=== PATIENT | female | born 1935 | race Caucasian/White ===

== ENCOUNTER 2016-08-08 09:27 | Day surgery (SDC) | payer MEDICARE, OTHER ==
--- NOTE | ~2016-08-08 | EGD ---
EGD REPORT [place] [address] [place] [address] NAME: SILVIA ARGUETA : 39 STATUS : REG [facility] [place] PAT#: [id number] AGE: 81 ADM/REG DATE : 08/08/16 MR#: [id number] REPORT SERV DATE: 08/08/16 DICTATED BY: LEANNA RUIZ DATE: 08/08/16 REPORT STATUS : Draft TRANSCRIBED BY: [facility] DATE: 08/08/16 Endoscopy Center Patient Name: Silvia Argueta Date of : 1935 Attending MD: NORM RUIZ MD Procedure Date No Time: 08/08/2016 Procedure: Colonoscopy Indications: High risk colon cancer surveillance: Personal history of colonic polyps, Last colonoscopy: June 2010 Referring MD: KAIN GONZALEZ Medicines: See the Anesthesia note for documentation of the administered medications Complications: No immediate complications. Estimated blood loss: None. Procedure: Pre-Anesthesia Assessment: - ASA Grade Assessment: III - A patient with severe systemic disease. - Prior to the procedure, a History and Physical was performed, and patient medications and allergies were reviewed. The patient's tolerance of previous anesthesia was also reviewed. The risks and benefits of the procedure and the sedation options and risks were discussed with the patient. All questions were answered, and informed consent was obtained. Prior Anticoagulants: The patient has taken aspirin, last dose was 1 day prior to procedure. After reviewing the risks and benefits, the patient was deemed in satisfactory condition to undergo the procedure. After I obtained informed consent, the scope was passed under direct vision. Throughout the procedure, the patient's blood pressure, pulse, and oxygen saturations were monitored continuously. The PCF [id number] was introduced through the anus and advanced to the terminal ileum. The ileocecal valve, appendiceal orifice, terminal ileum and rectum were photographed. The entire colon was examined. The colonoscopy was performed without difficulty. The patient tolerated the procedure well. The quality of the bowel preparation was adequate. Findings: The perianal and digital rectal examinations were normal. The terminal ileum appeared normal. A sessile polyp was found in the sigmoid colon. The polyp was 3 mm in size. The polyp was removed with a cold snare. Resection was complete, but the polyp tissue was not retrieved. A sessile polyp was found in the distal ascending colon. The polyp was 4 EGD REPORT [address] [address] NAME: SILVIA ARGUETA : 39 STATUS : REG [facility]#: [id number] AGE: 81 ADM/REG DATE : 08/08/16 MR#: [id number] REPORT SERV DATE: 08/08/16 DICTATED BY: LEANNA RUIZ DATE: 08/08/16 REPORT STATUS : Draft TRANSCRIBED BY: [employer] DATE: 08/08/16 mm in size. The polyp was removed with a cold snare. Resection and retrieval were complete. Multiple small and large-mouthed diverticula were found in the entire colon. Non-bleeding internal hemorrhoids were found during retroflexion and were Grade I (internal hemorrhoids that do not prolapse). No other significant abnormalities were identified in a careful examination of the remainder of the colon. Impression: - The examined portion of the ileum was normal. - One 3 mm polyp in the sigmoid colon. Complete resection. Polyp tissue not retrieved. - One 4 mm polyp in the distal ascending colon. Resected and retrieved. - Diverticulosis in the entire examined colon. - Non-bleeding internal hemorrhoids. Recommendation: - Patient has a contact number available for emergencies. The signs and symptoms of potential delayed complications were discussed with the patient. Return to normal activities tomorrow. Written discharge instructions were provided to the patient. - High fiber diet indefinitely. - Discharge patient to home. - Continue present medications. - Await pathology results. - Repeat colonoscopy is not recommended for surveillance. Procedure Code(s): --- Professional --- 37947, Colonoscopy, flexible, proximal to splenic flexure; with removal of tumor(s), polyp(s), or other lesion(s) by snare technique Diagnosis Code(s): --- Professional --- K64.0, First degree hemorrhoids K57.30, Diverticulosis of large intestine without perforation or abscess without bleeding D12.2, Benign neoplasm of ascending colon D12.5, Benign neoplasm of sigmoid colon Z86.010, Personal history of colonic polyps CPT copyright 2013 [employer]. All rights reserved. The codes documented in this report are preliminary and upon aerial photographer review may be revised to meet current compliance requirements. EGD REPORT [place] [address] [address] NAME: SILVIA ARGUETA : 39 STATUS : REG [facility]#: [id number] AGE: 81 ADM/REG DATE : 08/08/16 MR#: [id number] REPORT SERV DATE: 08/08/16 DICTATED BY: LEANNA RUIZ DATE: 08/08/16 REPORT STATUS : Draft TRANSCRIBED BY: [employer] DATE: 08/08/16 NORM RUIZ MD 08/08/2016 10:35 AM This report has been signed electronically. Number of Addenda: 0 Note Initiated On: 08/08/2016 10:00 AM Scope Withdrawal Time 0 hours 6 minutes 25 seconds [address] [address]
--- NOTE | ~2016-08-08 | EGD ---
EGD REPORT [facility] [address] [place] [address] NAME: SILVIA ARGUETA : 39 STATUS : REG [facility] [place] PAT#: [id number] AGE: 81 ADM/REG DATE : 08/08/16 MR#: [id number] REPORT SERV DATE: 08/08/16 DICTATED BY: LEANNA RUIZ DATE: 08/08/16 REPORT STATUS : Draft [facility]ANSCRIBED BY: [facility] DATE: 08/08/16 Endoscopy Center Patient Name: Silvia Argueta Date of : 1935 Attending MD: NORM RUIZ MD Procedure Date No Time: 08/08/2016 Procedure: Upper GI endoscopy Indications: Dysphagia Referring MD: KAIN GONZALEZ Medicines: See the Anesthesia note for documentation of the administered medications Complications: No immediate complications. Estimated blood loss: None. Procedure: Pre-Anesthesia Assessment: - ASA Grade Assessment: III - A patient with severe systemic disease. - Prior to the procedure, a History and Physical was performed, and patient medications and allergies were reviewed. The patient's tolerance of previous anesthesia was also reviewed. The risks and benefits of the procedure and the sedation options and risks were discussed with the patient. All questions were answered, and informed consent was obtained. Prior Anticoagulants: The patient has taken aspirin, last dose was 1 day prior to procedure. After reviewing the risks and benefits, the patient was deemed in satisfactory condition to undergo the procedure. After obtaining informed consent, the endoscope was passed under direct vision. Throughout the procedure, the patient's blood pressure, pulse, and oxygen saturations were monitored continuously. The GIF H190 [id number] was introduced through the mouth, and advanced to the third part of duodenum. The upper GI endoscopy was accomplished without difficulty. The patient tolerated the procedure well. Findings: The examined duodenum was normal. A small hiatus hernia was present. No other significant abnormalities were identified in a careful examination of the stomach. Abnormal motility was noted in the esophagus. Tertiary peristaltic waves are noted. A guidewire was placed and the scope was withdrawn. Dilation was performed with a Savary dilator with no resistance at 51 Fr and no resistance at 57 Fr. EGD REPORT [address] [address] NAME: SILVIA ARGUETA : 39 STATUS : REG [facility]#: [id number] AGE: 81 ADM/REG DATE : 08/08/16 MR#: [id number] REPORT SERV DATE: 08/08/16 DICTATED BY: LEANNA RUIZ DATE: 08/08/16 REPORT STATUS : Draft TRANSCRIBED BY: [employer] [facility] DATE: 08/08/16 Impression: - Normal examined duodenum. - Hiatus hernia. - Esophageal motility disorder. Recommendation: - Patient has a contact number available for emergencies. The signs and symptoms of potential delayed complications were discussed with the patient. Return to normal activities tomorrow. Written discharge instructions were provided to the patient. - Regular diet. - Continue present medications. - Discharge patient to home. Procedure Code(s): --- Professional --- 58589, Esophagogastroduodenoscopy, flexible, transoral; with insertion of guide wire followed by passage of dilator(s) through esophagus over guide wire Diagnosis Code(s): --- Professional --- K44.9, Diaphragmatic hernia without obstruction or gangrene K22.4, Dyskinesia of esophagus R13.10, Dysphagia, unspecified CPT copyright 2013 [employer]. All rights reserved. The codes documented in this report are preliminary and upon substation operator apprentice review may be revised to meet current compliance requirements. NORM RUIZ MD 08/08/2016 10:18 AM This report has been signed electronically. Number of Addenda: 0 Note Initiated On: 08/08/2016 10:07 AM Scope Withdrawal Time 0 hours 0 minutes 0 seconds [address] [place] [address]
[~2016-08-08 09:27] MED LIST: ADVAIR INH; ASAB PO; COMBIVENT INH; DUONEB INH; ESTRACE1 MG PO; LEXAPRO10 PO; MULTIVITAMI1 PO; PRILOSEC OTC20 MG PO; PROAIR HFA INH; RESTORIL30 MG PO; SPIRO50 PO; STOOL SOFTENER PO; ZOCOR10 PO
== END 2016-08-08 23:59 | disposition home or self-care (01) ==
LOC: DMU 09:27
PROVIDERS: Internal Medicine Gastroenterology
PROC: 0D757ZZ Dilation of Esophagus, Via Natural or Artificial Opening (ICD-10-PCS; 2016-08-08)
PROC: 0DBN8ZZ Excision of Sigmoid Colon, Via Natural or Artificial Opening Endoscopic (ICD-10-PCS; principal; 2016-08-08 10:30)
PROC: 0DBK8ZZ Excision of Ascending Colon, Via Natural or Artificial Opening Endoscopic (ICD-10-PCS; 2016-08-08 10:30)
DX: Z12.11 Encounter for screening for malignant neoplasm of colon (principal); D12.2 Benign neoplasm of ascending colon; K64.0 First degree hemorrhoids; K57.30 Diverticulosis of large intestine without perforation or abscess without bleeding; E78.00 Pure hypercholesterolemia, unspecified; D12.5 Benign neoplasm of sigmoid colon; F32.9 Major depressive disorder, single episode, unspecified; Z86.010 Personal history of colon polyps; J44.9 Chronic obstructive pulmonary disease, unspecified; Z88.5 Allergy status to narcotic agent; Z90.710 Acquired absence of both cervix and uterus; Z98.41 Cataract extraction status, right eye; Z98.42 Cataract extraction status, left eye; Z96.1 Presence of intraocular lens; Z98.82 Breast implant status; Z90.49 Acquired absence of other specified parts of digestive tract; Z99.81 Dependence on supplemental oxygen; Z79.899 Other long term (current) drug therapy; Z79.82 Long term (current) use of aspirin; Z79.52 Long term (current) use of systemic steroids; K44.9 Diaphragmatic hernia without obstruction or gangrene; K22.4 Dyskinesia of esophagus; R13.10 Dysphagia, unspecified
CPT/HCPCS: 88305